=== PATIENT | female | born 1930 | race Caucasian/White ===

== ENCOUNTER 2018-02-21 15:00 | Inpatient (IN) | payer MEDICARE, OTHER ==
[~2018-02-21] VITALS: Ht 154.9 cm; Wt 52.8 kg
[2018-02-21 15:02] VITALS: BP 131/63
[2018-02-21] MEDS ORDERED: ASPIR 8181 MG PO (15:24)
[2018-02-21] MEDS ORDERED: LIPITOR80 MG PO (15:25)
[2018-02-21 15:26] LABS: ABSOLUTE BASOPHILS 0.1 thou/uL (0.0-0.2); ABSOLUTE EOSINOPHILS 0.2 thou/uL (0.0-0.7); ABSOLUTE LYMPHOCYTES 1.4 thou/uL (0.8-5.3); ABSOLUTE MONOCYTES 0.8 thou/uL (0.0-1.2); ABSOLUTE NEUTROPHILS 3.6 thou/uL (1.6-8.1); EOSINOPHILS 2.6 %; HEMOGLOBIN 12.1 gm/dL (12.0-15.0); LYMPHOCYTES 23.6 %; MCHC 33.5 g/dL (28.0-37.0); MCV 83.6 fL (80.0-100.0); MONOCYTES 13.3 %; MPV 10.3 fl. (7.2-11.1); NUCLEATED RBCS 0 /100WBC; PLATELET COUNT* 147 thou/uL (150-400); POLYS 59.5 %; RBC 4.31 mil/uL (4.20-5.00); RDW-CV 14.5 % (10.5-14.5); WBC 6.1 thou/uL (4.0-11.0)
[2018-02-21] MEDS ORDERED: IMDUR 30 MG TAB30 M1 PO (15:26)
[2018-02-21 15:35] LABS: CREATININE 0.8 mg/dL (0.6-1.3); POTASSIUM 3.9 mmol/L (3.5-5.1)
[2018-02-21] MEDS ORDERED: SYNTHROID75 MCG PO (15:36)
[2018-02-21] MEDS ORDERED: LISINOPRIL10 MG PO (15:36)
[2018-02-21] MEDS ORDERED: NAMENDA 10 MG T10 MG PO (15:37)
[2018-02-21] MEDS ORDERED: ATIVAN0.5 MG PO (15:37)
[2018-02-21] MEDS ORDERED: TOPROL XL25 MG PO (15:37)
[2018-02-21] MEDS ORDERED: REMERON15 MG PO (15:38)
[2018-02-21] MEDS ORDERED: ZOLOFT25 MG PO (15:38)
[2018-02-21 15:40] LABS: APTT 25.2 Seconds (25.0-31.3); PROTIME 10.1 Seconds (9.20-11.50)
[2018-02-21 15:53] LABS: ALBUMIN 3.2 g/dL (3.4-5.0); CK-MB MASS 1.2 ng/mL (<0.5-3.6); MAGNESIUM 2.1 mg/dL (1.8-2.4); TOTAL BILIRUBIN 0.3 mg/dL (<0.1-1.0); TOTAL PROTEIN 6.7 g/dL (6.4-8.2); TROPONIN-I LEVEL 0.08 ng/mL (<0.06)
[2018-02-21 17:45] VITALS: BP 179/83
[2018-02-21 17:55] VITALS: BP 171/66
[2018-02-21 20:00] VITALS: BP 171/66
[2018-02-22] VITALS: BP 85/38
[2018-02-22 08:00] VITALS: BP 176/73
--- NOTE | 2018-02-22 09:38 | EKG ---
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
[2018-02-22 11:57] VITALS: BP 143/55
--- NOTE | 2018-02-22 13:28 | 2DMMODE ---
[place] [address] 2 D/M-MODE ECHOCARDIOGRAM Name: JASON HUMPHREY Room: [address] IN [facility]#: [id number] Admission: 02/21/18 Attend Phys: Sintia Lubin Discharge: Date of : [birth year] Date of Service: 02/22/18 1328 Report #: [id number] THIS REPORT FOR: //name// APPROVED REPORT Study performed: 02/22/2018 10:27:07 EXAM: Comprehensive 2D, Doppler, and color-flow Echocardiogram Patient Location: In-Patient Room #: [facility] Status: routine BSA: 1.50 HR: 52 bpm BP: 176/73 mmHg Rhythm: NSR Other Information Study Quality: Good Indications Elevated Troponin Chest Pain 2D Dimensions LVEF(%): 68.35 (>50%) IVSd: 11.28 (7-11mm) LVOT Diam: 19.91 (18-24mm) LVDd: 34.03 mm PWd: 8.89 (7-11mm) Ascending Ao: 32.26 (22-36mm) LVDs: 21.36 (25-40mm) Aortic Root: 32.77 mm Ocampo's LVEF: 68.35 % Volumes Left Atrial Volume (Systole) LA ESV Index: 20.20 mL/m2 Aortic Valve AoV Peak Nilson.: 1.09 m/s AO Peak Gr.: 4.73 mmHg LVOT Max P.70 mmHg AO Mean Gr.: 2.32 mmHg LVOT Mean P.15 mmHg LVOT Max V: 0.82 m/s AO V2 VTI: 22.84 cm LVOT Mean V: 0.48 m/s JOSE (VTI): 3.34 cm2 LVOT V1 VTI: 24.52 [place] [address] 2 D/M-MODE ECHOCARDIOGRAM Name: JASON HUMPHREY Room: [address] IN .R.#: [id number] Admission: 02/21/18 Attend Phys: Sintia Lubin Discharge: Date of : [birth year]/09/[birth year] Date of Service: 02/22/18 1328 Report #: [id number] E/A Ratio: 0.77 MV Decel. Time: 323.22 ms MV E Max Nilson.: 0.72 m/s MV PHT: 93.73 ms MVA (PHT): 2.35 cm2 TDI E/Lateral E': 8.00 E/Medial E': 10.29 Medial E' Nilson.: 0.07 m/s Lateral E' Nilson.: 0.09 m/s Pulmonary Valve PV Peak Nilson.: 0.75 m/s PV Peak Gr.: 2.26 mmHg Left Ventricle The left ventricle is normal size. basal inferior hyokinesis,mild other segments normal Mild concentric left ventricular hypertrophy. Left ventricular systolic function is normal. The left ventricular ejection fraction is within the normal range. LVEF is 50-55%. Grade I - abnormal relaxation pattern. Right Ventricle The right ventricle is normal size. The right ventricular systolic function is normal. Atria The left atrium size is normal. The right atrium size is normal. Aortic Valve Aortic valve is thickened but has adequate excursion. Aortic valve is not well visualized. No aortic regurgitation is present. There is no aortic valvular stenosis. Mitral Valve The mitral valve is normal in structure. Trace mitral regurgitation. No evidence of mitral valve stenosis. Tricuspid Valve The tricuspid valve is normal in structure. Unable to assess PA pressure. Trace tricuspid regurgitation. Pulmonic Valve The pulmonary valve is normal in structure. Mild [place] [address] 2 D/M-MODE ECHOCARDIOGRAM Name: JASON HUMPHREY MARK Room: [address] IN [facility]#: [id number] Admission: 02/21/18 Attend Phys: Sintia Lubin Discharge: Date of : 05/09/[birth year] Date of Service: 02/22/18 1328 Report #: [id number] Great Vessels The aortic root is normal in size. IVC is normal in size and collapses with >50% inspiration Pericardium There is no pericardial effusion. <Conclusion> Mild concentric left ventricular hypertrophy. basal inferior hyokinesis,mild other segments normal LVEF is 50-55%. Trace mitral regurgitation. Aortic valve is thickened but has adequate excursion. There is no aortic valvular stenosis. No aortic regurgitation is present. <ELECTRONICALLY SIGNED> By: Benito Ramírez MD, FACC 02/22/18 1328 27 27 Benito Ramírez MD, FACC /INF
[2018-02-22 15:24] VITALS: BP 122/68
[2018-02-22 20:00] VITALS: BP 86/48
[2018-02-23] VITALS: BP 141/69
[2018-02-23 03:54] VITALS: BP 111/63
[2018-02-23 08:00] VITALS: BP 159/87
[2018-02-23] MEDS ORDERED: FOSINOPRIL SODI20 MG PO (12:01)
[2018-02-23] MEDS ORDERED: IMDUR 60 MG TAB60 M1 PO (12:01)
[2018-02-23 12:11] VITALS: BP 123/57
[2018-02-23 12:48] VITALS: BP 123/57
[2018-02-23 13:22] VITALS: BP 123/57
== END 2018-02-23 13:47 | disposition home or self-care (01) | DRG 303 ==
LOC: M.ERS 15:00 → M.TBA-ER 16:48 → M.2W 16:48
PROVIDERS: Emergency Medicine; ADMIT Internal Medicine
DX: I25.119 Atherosclerotic heart disease of native coronary artery with unspecified angina pectoris (principal); F03.90 Unspecified dementia, unspecified severity, without behavioral disturbance, psychotic disturbance, mood disturbance, and anxiety; I10 Essential (primary) hypertension; E78.5 Hyperlipidemia, unspecified; Z88.6 Allergy status to analgesic agent; Z88.0 Allergy status to penicillin; Z95.5 Presence of coronary angioplasty implant and graft; Z79.82 Long term (current) use of aspirin; Z79.899 Other long term (current) drug therapy; I25.2 Old myocardial infarction

== ENCOUNTER → 2018-09-06 | Outpatient (CLI) | payer MEDICARE, OTHER ==
[~2018-09-06] MED LIST: ASPIR 8181 MG PO; ATIVAN0.5 MG PO; FOSINOPRIL SODI20 MG PO; IMDUR 30 MG TAB30 M1 PO; IMDUR 60 MG TAB60 M1 PO; LIPITOR80 MG PO; LISINOPRIL10 MG PO; NAMENDA 10 MG T10 MG PO; REMERON15 MG PO; SYNTHROID75 MCG PO; TOPROL XL25 MG PO; ZOLOFT25 MG PO
--- NOTE | 2018-09-06 16:10 | 2DMMODE ---
[place] [address] 2 D/M-MODE ECHOCARDIOGRAM Name: JASON HMUPHREY MARK Room: [facility]#: [id number] Admission: 09/06/18 Attend Phys: Ramos Bell Discharge: Date of : [birth year]/09/[birth year] Date of Service: 09/06/18 1610 Report #: [id number] THIS REPORT FOR: //name// APPROVED REPORT Study performed: 09/06/2018 11:15:08 EXAM: Comprehensive 2D, Doppler, and color-flow Echocardiogram Patient Location: Out-Patient Status: routine BSA: 1.51 HR: 85 bpm BP: 172/73 mmHg Rhythm: NSR Other Information Study Quality: Good Indications CAD Hypertension/HDD 2D Dimensions IVSd: 11.63 (7-11mm) LVOT Diam: 21.94 (18-24mm) LVDd: 32.41 mm PWd: 9.96 (7-11mm) Ascending Ao: 34.88 (22-36mm) LVDs: 16.81 (25-40mm) Aortic Root: 29.68 mm Volumes Left Atrial Volume (Systole) LA ESV Index: 29.60 mL/m2 Aortic Valve AoV Peak Nilson.: 1.04 m/s AO Peak Gr.: 4.34 mmHg LVOT Max P.24 mmHg AO Mean Gr.: 2.60 mmHg LVOT Mean P.51 mmHg LVOT Max V: 0.90 m/s AO V2 VTI: 20.20 cm LVOT Mean V: 0.56 m/s JOSE (VTI): 3.43 cm2 LVOT V1 VTI: 18.30 cm Mitral Valve E/A Ratio: 0.49 MV Decel. Time: 282.31 [place] [address] 2 D/M-MODE ECHOCARDIOGRAM Name: JASON HUMPHREY [facility] Room: [facility] Gian#: [id number] Admission: 09/06/18 Attend Phys: Ramos Bell Discharge: Date of : 05/09/[birth year] Date of Service: 09/06/18 1610 Report #: [id number] MV E Max Nilson.: 0.59 m/s MV PHT: 81.87 ms MVA (PHT): 2.69 cm2 TDI E/Lateral E': 6.56 E/Medial E': 6.56 Medial E' Nilson.: 0.09 m/s Lateral E' Nilson.: 0.09 m/s Pulmonary Valve PV Peak Nilson.: 0.90 m/s PV Peak Gr.: 3.21 mmHg Tricuspid Valve RAP Estimate: 5.00 mmHg TR Peak Gr.: 15.45 mmHg RVSP: 20.00 mmHg PA Pressure: 20.00 mmHg Left Ventricle The left ventricle is normal size. There is normal LV segmental wall motion. Mild concentric left ventricular hypertrophy. Left ventricular systolic function is normal. The left ventricular ejection fraction is within the normal range. LVEF is 60-65%. Grade I - abnormal relaxation pattern. Right Ventricle The right ventricle is normal size. The right ventricular systolic function is normal. Atria The left atrium size is normal. The right atrium size is normal. Aortic Valve Mild aortic valve sclerosis. No aortic regurgitation is present. There is no aortic valvular stenosis. Mitral Valve Mild mitral annular calcification. Trace mitral regurgitation. No evidence of mitral valve stenosis. Tricuspid Valve The tricuspid valve is normal in structure. Trace tricuspid regurgitation. No pulmonary hypertension. Pulmonic Valve The pulmonary valve is normal in structure[place] [address] 2 D/M-MODE ECHOCARDIOGRAM Name: JASON HUMPHREY MARK [id number] Admission: 09/06/18 Attend Phys: Ramos Bell Discharge: Date of : [birth year]/09/[birth year] Date of Service: 09/06/18 1610 Report #: [id number] regurgitation. Great Vessels The aortic root is normal in size. IVC is normal in size and collapses >50% with inspiration. Pericardium There is no pericardial effusion. <Conclusion> The left ventricle is normal size. Mild concentric left ventricular hypertrophy. Left ventricular systolic function is normal. The left ventricular ejection fraction is within the normal range. LVEF is 60-65%. Grade I - abnormal relaxation pattern. The right ventricle is normal size. The left atrium size is normal. Mild aortic valve sclerosis. No aortic regurgitation is present. There is no aortic valvular stenosis. Mild mitral annular calcification. Trace mitral regurgitation. No evidence of mitral valve stenosis. The tricuspid valve is normal in structure. IVC is normal in size and collapses >50% with inspiration. There is no pericardial effusion. There is normal LV segmental wall motion. <ELECTRONICALLY SIGNED> By: Tomy Harper MD, FACC 09/06/18 1610 161 161 Tomy Harper MD, FACC /INF
== END ==
LOC: M.CRD 10:58
DX: I37.1 Nonrheumatic pulmonary valve insufficiency (principal); I35.8 Other nonrheumatic aortic valve disorders; I34.8 Other nonrheumatic mitral valve disorders; I11.9 Hypertensive heart disease without heart failure; I25.10 Atherosclerotic heart disease of native coronary artery without angina pectoris; I25.2 Old myocardial infarction

== ENCOUNTER 2018-12-19 05:59 | Inpatient (IN) | payer MEDICARE, OTHER ==
[~2018-12-19] VITALS: Ht 157.5 cm; Wt 60.3 kg
[2018-12-19 06:00] VITALS: BP 194/75
[2018-12-19] MEDS ORDERED: SEROQUEL 25 MG25 M1 PO (06:02)
[2018-12-19 06:21] LABS: ABSOLUTE BASOPHILS 0.1 thou/uL (0.0-0.2); ABSOLUTE EOSINOPHILS 0.3 thou/uL (0.0-0.7); ABSOLUTE LYMPHOCYTES 1.2 thou/uL (0.8-5.3); ABSOLUTE MONOCYTES 0.6 thou/uL (0.0-1.2); ABSOLUTE NEUTROPHILS 3.4 thou/uL (1.6-8.1); BASOPHILS 1.4 %; EOSINOPHILS 4.8 %; HEMATOCRIT 36.1 % (37.0-47.0); LYMPHOCYTES 21.6 %; MCH 27.8 pg (26.0-34.0); MCHC 33.2 g/dL (28.0-37.0); MCV 83.7 fL (80.0-100.0); MPV 9.9 fl. (7.2-11.1); NUCLEATED RBCS 0 /100WBC; PLATELET COUNT* 123 thou/uL (150-400); POLYS 61.2 %; RBC 4.32 mil/uL (4.20-5.00); RDW-CV 15.5 % (10.5-14.5); WBC 5.6 thou/uL (4.0-11.0)
[2018-12-19 06:26] LABS: CALCIUM 8.6 mg/dL (8.5-10.1); CREATININE 1.1 mg/dL (0.6-1.3); POTASSIUM 3.9 mmol/L (3.5-5.1)
[2018-12-19 06:36] LABS: TROPONIN-I LEVEL 0.07 ng/mL (<0.06)
[2018-12-19 06:50] LABS: URINE BILIRUBIN NEGATIVE (Negative); URINE BLOOD NEGATIVE (Negative); URINE CLARITY CLEAR; URINE COLOR YELLOW; URINE GLUCOSE-RANDOM NEGATIVE (Negative); URINE KETONES NEGATIVE (Negative); URINE LEUKOCYTES-REFLEX NEGATIVE (Negative); URINE NITRITE-REFLEX NEGATIVE (Negative); URINE PROTEIN NEGATIVE (Negative); URINE SPECIFIC GRAVITY <= 1.005 (1.005-1.030); URINE UROBILINOGEN 0.2 E.U./dl (0.2-1.0)
[2018-12-19 07:55] LABS: APTT 25.5 Seconds (25.0-31.3); PROTIME 10.3 Seconds (9.20-11.50)
[2018-12-19 12:30] VITALS: BP 101/51
[2018-12-19 16:29] VITALS: BP 136/69
--- NOTE | 2018-12-19 16:33 | NUR ---
ASSESSMENT COMPLETE. PT ADMITTED WITH HIP FX. PT NEEDS CARDIOLOGY CLEARANCE FOR SURGERY TOMORROW. PT ALERT, ORIENTED TO SELF HX OF DEMENTIA. PT LIVES WITH SPOUSE AT [facility] [place]. PT IS CONFUSED AND PULLING AT IV, TIDWELL, TELEMETRY MONITORS. PT CLIMBING OUT OF BED, PRN ATIVAN GIVEN. FAMILY AT BEDSIDE. WILL CONTINUE TO MONITOR.
--- NOTE | 2018-12-19 16:53 | EKG ---
[place] [address] ELECTROCARDIOGRAM REPORT Name: JASON HUMPHREY Room: [address] ADM IN [facility].#: [id number] Admission: 12/19/18 Attend Phys: Austen Winston MD Discharge: Date of : [birth year]/09/[birth year] Report #: [id number] THIS REPORT FOR: //name// 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
--- NOTE | 2018-12-19 17:11 | NUR ---
PT PULLED OUT TIDWELL AT 1705, WILL NOTIFY PHYSICIAN FOR ORDERS. PT GIVEN PAIN MEDICATION AND SEROQUEL PER ORDERS. SITTER AT BEDSIDE. WILL CONTINUE TO MONITOR.
[2018-12-19 19:30] VITALS: BP 98/58
[2018-12-20] VITALS (9 sets, daily range): BP systolic 104–191; BP diastolic 44–80
--- NOTE | 2018-12-20 00:10 | NUR ---
INITAL ASSESMENT COMPLETED AT 1999. PT IN BED WITH SIDE RAILS UP X4. ONE TO ONE SITTER AT BEDSIDE FOR PT SAFETY AND TO MAINTAIN SALINE LOCK AND TELEMERTY MONITOR IN PLACE. VITAL SIGNS WITHIN NORMAL LIMITS.
[2018-12-20 05:25] LABS: ABSOLUTE EOSINOPHILS 0.3 thou/uL (0.0-0.7); ABSOLUTE LYMPHOCYTES 0.9 thou/uL (0.8-5.3); ABSOLUTE MONOCYTES 0.8 thou/uL (0.0-1.2); BASOPHILS 0.7 %; EOSINOPHILS 4.3 %; HEMATOCRIT 32.2 % (37.0-47.0); HEMOGLOBIN 10.6 gm/dL (12.0-15.0); LYMPHOCYTES 15.4 %; MCH 27.8 pg (26.0-34.0); MCV 84.3 fL (80.0-100.0); MONOCYTES 13.1 %; MPV 10.5 fl. (7.2-11.1); NUCLEATED RBCS 0 /100WBC; PLATELET COUNT* 108 thou/uL (150-400); POLYS 66.5 %; RBC 3.82 mil/uL (4.20-5.00); RDW-CV 15.4 % (10.5-14.5)
[2018-12-20 05:53] LABS: ANION GAP 7 mmol/L (7-16); BUN 14 mg/dL (7-18); CALCIUM 8.4 mg/dL (8.5-10.1); CHLORIDE 108 mmol/L (98-107); CHOLESTEROL 85 mg/dL (<200); CO2 28 mmol/L (21-32); GLUCOSE 114 mg/dL (70-99); HDL CHOLESTEROL 46 mg/dL (>40); LDL CHOLESTEROL 27 mg/dL (<100); MAGNESIUM 1.9 mg/dL (1.8-2.4); POTASSIUM 4.1 mmol/L (3.5-5.1); SODIUM 143 mmol/L (136-145); TC:HDL 1.8 Ratio (Not establshd); TRIGLYCERIDE 62 mg/dL (<150); VLDL 12 mg/dL (<40)
[2018-12-20 06:00] LABS: SERUM ASSESSMENT Clear
--- NOTE | 2018-12-20 06:38 | NUR ---
PT SLEPT DURING SHIFT. PT NPO AFTER MIDNIGHT FOR ORIF OF LEFT HIP. PT GIVEN AM MEDS AT 0530 WITH SMALL AMOUNT OF WATER. VITAL SIGNS WITHIN NORMAL LIMITS, WILL CONTINUE PLAN OF CARE.
--- NOTE | 2018-12-20 11:36 | NUR ---
Pt in surgery this morning. From previous record, pt living in [facility]. Pt alert and oriented only to self according to pt nurse. SW to continue to follow to assist with safe dc planning.
--- NOTE | 2018-12-20 11:39 | EKG ---
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: : 1930 Requested By: Mariana Pittman Order Number: [id number] Reading MD: Benito Ramírez Measurements Intervals [place] Rate: 67 P: 22 [place]: 159 QRS: -39 QRSD: 87 T: 10 QT: 441 QTc: 466 Interpretive Statements Sinus rhythm Abnormal R-wave progression, late transition Left ventricular hypertrophy Inferior infarct, old Compared to ECG 12/19/2018 06:08:39 Left ventricular hypertrophy now present Myocardial infarct finding still present Electronically Signed On 12-20-2018 11:38:48 CDT by Benito Ramírez [email or web address] <ELECTRONICALLY SIGNED> By: Benito Ramírez MD, FAC 12/20/18 1138 0930 0930 Benito Ramírez MD, FAC /EPI
--- NOTE | 2018-12-20 13:44 | CON ---
[address] [address] CONSULTATION Name: JASON HUMPHREY Room: [address] IN M.R.#: [id number] Admission: 12/19/18 Attend Phys: Austen Winston MD Discharge: Date of : [birth year]09/[birth year] Report #: [id number] THIS REPORT FOR: //name// CC: [facility] Hospital[facility] DATE OF SERVICE: 12/19/2018 CARDIOLOGY CONSULTATION HISTORY OF PRESENT ILLNESS: The patient is an 88-year-old white female who I was asked to see in the hospital today for preoperative evaluation. The history is obtained from the patient as well as some old records. There are no family members available. The patient is confused. She was actually admitted here in 02/2018 and seen by the Cardiology Service. The patient apparently has a history of dementia and had complained of some chest pain. She apparently has had a history of coronary artery stenting at [facility] in the past. The patient is not very active because of her dementia. The patient apparently was brought to the Emergency Room earlier today. She apparently had fallen at the long-term, but there is no loss of consciousness. She complained of hip pain and was found to have a hip fracture. She apparently scheduled for hip surgery. I was asked to see her for preoperative evaluation. She denies recent chest pain, shortness of breath. PAST MEDICAL HISTORY: Otherwise significant for hypothyroidism. MEDICATIONS AT ALF: Include aspirin, Synthroid, metoprolol, Lipitor, sertraline, Seroquel. ALLERGIES: She has intolerance to MORPHINE AND PENICILLIN. SOCIAL HISTORY: She denies a history of smoking. REVIEW OF SYSTEMS: There is no history of stroke, kidney disease or cancer. PHYSICAL EXAMINATION: GENERAL: Revealed an elderly frail appearing female, lying in bed. She appeared in no acute distress. VITAL SIGNS: She had a blood pressure of 140/70, pulse 60. She is afebrile. HEENT: She was anicteric. Conjunctivae are pink. Mucous membranes are dry. NECK: Veins do not appear distended. CHEST: Clear to auscultation. CARDIOVASCULAR: Regular rate and rhythm. ABDOMEN: Soft. EXTREMITIES: Had no edema. SKIN: [place] [address] CONSULTATION Name: JASON HUMPHREY [facility] Room: [address] IN [facility]#: [id number] Admission: 12/19/18 Attend Phys: Austen Winston MD Discharge: Date of : [birth year]/09/[birth year] Report #: [id number] NEUROLOGIC: She moved all extremities. LABORATORY DATA: ECG on admission showed sinus rhythm with septal Q-waves, but no significant ST or T-wave changes were noted. Her workup, she had an echocardiogram done in September of this year here at [facility] that showed left ventricular hypertrophy, ejection fraction 60%, no significant valvular disease. Workup in the Emergency Room today, she had a CT scan of the head that showed no acute abnormality. Her lab work, sodium 145, creatinine 1.1, albumin 3.2. Troponin 0.09. White blood cell count 5.6, hemoglobin 12.0. IMPRESSION AND RECOMMENDATIONS: 1. Hip fracture. The patient is scheduled for surgery. She appears to have no cardiac contraindication to surgery. 2. History of coronary artery stenting. No complaints of recent angina. Recommend no further cardiac evaluation. 3. Hyperlipidemia. The patient is on a statin drug. 4. Hypertension. The patient is on an SANJAY inhibitor and beta karen. 5. Dementia. <ELECTRONICALLY SIGNED> By: Jesus Escudero MD, FACC 12/20/18 1344 1738 [id number] Escudero MD, FACC /nt
--- NOTE | 2018-12-20 14:25 | OP ---
[address] [address] OPERATIVE REPORT Name: KMAJASON MARK Room: [address] IN M.R.#: [id number] Admission: 12/19/18 Attend Phys: Austen Winston MD Discharge: Date of : [birth year]09/[birth year] Report #: [id number] THIS REPORT FOR: //name// CC: Austen Jacques DATE OF SERVICE: 12/20/2018 PREOPERATIVE DIAGNOSIS: Closed intertrochanteric fracture, left hip. POSTOPERATIVE DIAGNOSIS: Closed intertrochanteric fracture, left hip. OPERATION PERFORMED: 1. Open reduction and internal fixation with cephalomedullary lillian, left hip. 2. Physician directed fluoroscopy by Dr. Adams under 1 hour. SURGEON: Jovanny Adams DO. MUSIC COORDINATOR: Jeffy Carrasco. ANESTHESIA: General. GROSS PATHOLOGY: There was evidence of a closed intertrochanteric fracture of the left hip. IMPLANTS UTILIZED: [place] gamma lillian standard with 90-mm lag screw, 37.5-mm distal locking screw and set screw. DESCRIPTION OF PROCEDURE: The patient was brought to the operating room where general anesthetic was administered. Preoperative antibiotics were given. The patient was placed on the operating table. The left hip was placed in traction. The fracture was reduced, noted to be in acceptable position. After the Hibiclens scrub and ChloraPrep, prep was completed, the patient was draped in a sterile manner. An incision was then made at the greater trochanter, approximately an inch and half in length, it was carried down through the skin and subcuticular material by sharp dissection. By sharp and blunt dissection, the tip of the greater trochanter is identified. The starting awl was utilized to make a hole in the greater trochanter. The guidewire was inserted into the femoral shaft. It was viewed with the C-arm, noted to be in the center of the bone. The femur was then reamed up to 13 mm to the area where the lillian will end and then reamed to 15.5 mm to the depth of the lesser trochanter. The gamma lillian is assembled. It is inserted over the guidewire to the appropriate depth. The guidewire was removed. Utilizing the guide, a guidewire was inserted into the femoral neck and head. Measurements were taken. The dual reamer was used to ream over the guidewire. The lag screw was placed [place] [address] OPERATIVE REPORT Name: JASON HUMPHREY Room: [address] IN [facility]#: [id number] Admission: 12/19/18 Attend Phys: Austen Winston MD Discharge: Date of : [birth year]09/[birth year] Report #: [id number] appropriate depth. The proximal locking screw was then tightened into the lag screw and backed off a quarter turn. Attention was turned to the distal portion of the lillian. Utilizing the guide, a drill was used to drill across the distal portion of the lillian. Measurements were taken. The distal locking screws placed through the bone and the implant device. All inserting devices are removed. The final C-arm visualization revealed acceptable position of the fracture site and implant devices. The C-arm was used intermittently under my direction under one hour. The deep tissues were closed Vicryl suture, subcutaneous with 2-0 Vicryl and magdalene on the skin. Estimated blood loss was approximately 100 mL. The patient was transferred to the recovery room in good condition. <ELECTRONICALLY SIGNED> By: Jovanny Adams DO 12/20/18 1425 1136 [id number] Adams DO /nt
[2018-12-21] VITALS: BP 132/64
[2018-12-21 04:00] VITALS: BP 135/75
[2018-12-21 05:18] LABS: ABSOLUTE LYMPHOCYTES 0.4 thou/uL (0.8-5.3); ABSOLUTE MONOCYTES 0.8 thou/uL (0.0-1.2); ABSOLUTE NEUTROPHILS 6.5 thou/uL (1.6-8.1); BASOPHILS 0.1 %; HEMATOCRIT 31.4 % (37.0-47.0); HEMOGLOBIN 10.5 gm/dL (12.0-15.0); LYMPHOCYTES 5.6 %; MCH 28.2 pg (26.0-34.0); MCHC 33.2 g/dL (28.0-37.0); MCV 84.7 fL (80.0-100.0); MONOCYTES 10.2 %; MPV 10.7 fl. (7.2-11.1); NUCLEATED RBCS 0 /100WBC; PLATELET COUNT* 110 thou/uL (150-400); POLYS 84.1 %; RBC 3.71 mil/uL (4.20-5.00); RDW-CV 15.4 % (10.5-14.5); WBC 7.8 thou/uL (4.0-11.0)
[2018-12-21 05:21] LABS: CALCIUM 8.2 mg/dL (8.5-10.1); CREATININE 0.9 mg/dL (0.6-1.3); POTASSIUM 4.9 mmol/L (3.5-5.1)
[2018-12-21 07:30] VITALS: BP 129/59
[2018-12-21 12:01] VITALS: BP 112/53
[2018-12-21 19:40] VITALS: BP 162/78
[2018-12-22] VITALS: BP 141/46
[2018-12-22 04:35] LABS: ABSOLUTE EOSINOPHILS 0.3 thou/uL (0.0-0.7); ABSOLUTE LYMPHOCYTES 0.8 thou/uL (0.8-5.3); ABSOLUTE MONOCYTES 0.9 thou/uL (0.0-1.2); ABSOLUTE NEUTROPHILS 4.8 thou/uL (1.6-8.1); BASOPHILS 0.5 %; EOSINOPHILS 4.2 %; HEMATOCRIT 25.7 % (37.0-47.0); LYMPHOCYTES 12.1 %; MCH 27.6 pg (26.0-34.0); MCHC 32.8 g/dL (28.0-37.0); MCV 84.1 fL (80.0-100.0); MONOCYTES 12.6 %; MPV 10.9 fl. (7.2-11.1); NUCLEATED RBCS 0 /100WBC; PLATELET COUNT* 102 thou/uL (150-400); POLYS 70.6 %; RBC 3.06 mil/uL (4.20-5.00); RDW-CV 15.3 % (10.5-14.5); WBC 6.8 thou/uL (4.0-11.0)
[2018-12-22 04:50] LABS: CALCIUM 8.3 mg/dL (8.5-10.1); HEMOGLOBIN 8.4 gm/dL (12.0-15.0)
[2018-12-22 05:09] LABS: POTASSIUM 3.9 mmol/L (3.5-5.1)
--- NOTE | 2018-12-22 05:21 | NUR ---
PT SLEPT ON AND OFF THIS SHIFT. ASSESSMENT DOCUMENTED. MEDS GIVEN PER E-MAR. PT PULLED OUT IV THIS SHIFT, NEW IV STARTED. O2 REMAINED ON PATIENT TO MAINTAIN SATS OVER 92%. PAIN MEDS GIVEN PER E-MAR WITH RELIEF. PT ONLY ORIENTED TO SELF. PT TRYING TO CLIMB OUT OF BED, NOT REMEMBERING WHERE SHE IS OR WHY. SITTER REMAINED AT BEDSIDE. WILL CONTINUE WITH PLAN OF CARE.
[2018-12-22 11:54] VITALS: BP 127/62
--- NOTE | 2018-12-22 12:22 | NUR ---
SW called pt son Edison to introduce self, complete assessment, discuss dc planning. SW informed doctor's recommendation for inpt rehab and pt son agrees with plan for inpt rehab at [facility], pt son was concerned and does not want pt to have to move out to SNF or other and then move again back to [facility] at dc. Pt does still live at [facility] with pt . Pt has a RW now but pt does not use the walker. Possible for pt to be ready to dc to inpt rehab unit tomorrow if accepted. SW to continue to follow to assist with finalizing safe dc plan.
--- NOTE | 2018-12-22 16:10 | NUR ---
YUNG RESTING IN BED. VITAL SIGNS STABLE. YUNG IS AOX1 AND CONFUSED. SHE IS AMBULATING WITH WALKER AND ASSIST X1. HOURLY ROUNDING COMPLETED FOR PATIWENT SAFETY.
[2018-12-22 20:00] VITALS: BP 188/84
--- NOTE | 2018-12-22 20:00 | NUR ---
RECEIVED REPORT AND ASSUMED CARE OF PT, ASSESSMENT COMPLETED. PT CONFUSED, ORIENTED TO PERSON ONLY. UPSET BECAUSE HASN'T BEEN HERE ALL DAY. REASSURANCE GIVEN AND REINFORCED THAT HE HAD. LT HIP DRSG DRY AND INTACT. SITTER AT BED SIDE. WILL CONT TO MONITOR AND ASSIST NEEDED.
[2018-12-23] VITALS: BP 135/56
[2018-12-23 05:13] LABS: ABSOLUTE BASOPHILS 0.1 thou/uL (0.0-0.2); ABSOLUTE EOSINOPHILS 0.3 thou/uL (0.0-0.7); ABSOLUTE LYMPHOCYTES 0.9 thou/uL (0.8-5.3); ABSOLUTE MONOCYTES 0.7 thou/uL (0.0-1.2); ABSOLUTE NEUTROPHILS 3.5 thou/uL (1.6-8.1); BASOPHILS 1.3 %; EOSINOPHILS 5.5 %; HEMATOCRIT 25.5 % (37.0-47.0); HEMOGLOBIN 8.4 gm/dL (12.0-15.0); LYMPHOCYTES 17.1 %; MCH 27.5 pg (26.0-34.0); MCV 83.4 fL (80.0-100.0); MONOCYTES 12.7 %; MPV 10.6 fl. (7.2-11.1); NUCLEATED RBCS 0 /100WBC; PLATELET COUNT* 110 thou/uL (150-400); POLYS 63.4 %; RBC 3.05 mil/uL (4.20-5.00); RDW-CV 15.5 % (10.5-14.5); WBC 5.5 thou/uL (4.0-11.0)
[2018-12-23 05:25] LABS: CALCIUM 8.2 mg/dL (8.5-10.1); CREATININE 0.8 mg/dL (0.6-1.3); POTASSIUM 3.6 mmol/L (3.5-5.1)
--- NOTE | 2018-12-23 06:56 | NUR ---
SLEPT WELL TONIGHT. ASSISTED TO BR WITH WALKER AND STEADY GAIT. NO CHANGE IN ASSESSMENT. HS GOALS OF REST AND SAFETY ACHIEVED. HOURLY ROUNDING OBSERVED.
[2018-12-23] MEDS ORDERED: HYDROCODON-ACE1 EAC7 PO (14:42)
[2018-12-23] MEDS ORDERED: THERA M PLUS T1 EAC2 PO (14:42)
[2018-12-23] MEDS ORDERED: B12INJ SUBQ (14:42)
[2018-12-23] MEDS ORDERED: PANTOPRAZOLE SO40 M1 PO (14:42)
[2018-12-23] MEDS ORDERED: ELIQUIS5 MG PO (14:42)
[2018-12-23] MEDS ORDERED: DOK PLUS TABLE1 EACH PO (14:42)
[2018-12-23 15:54] VITALS: BP 138/82
[2018-12-23 16:55] VITALS: BP 138/82
== END 2018-12-23 18:18 | DRG 480 ==
LOC: M.ERS 05:59 → M.2W 07:53 → M.TBA-ER 07:53 → M.2W 15:57
PROVIDERS: Emergency Medicine; Family Medicine; Personal Emergency Response Attendant; ADMIT Internal Medicine
PROC: 0QS704Z Reposition Left Upper Femur with Internal Fixation Device, Open Approach (ICD-10-PCS; principal; 2018-12-20)
DX: S72.115A Nondisplaced fracture of greater trochanter of left femur, initial encounter for closed fracture (principal); I21.A1 Myocardial infarction type 2; D62 Acute posthemorrhagic anemia; F03.90 Unspecified dementia, unspecified severity, without behavioral disturbance, psychotic disturbance, mood disturbance, and anxiety; I10 Essential (primary) hypertension; E03.9 Hypothyroidism, unspecified; E78.5 Hyperlipidemia, unspecified; E53.8 Deficiency of other specified B group vitamins; E61.1 Iron deficiency; I25.10 Atherosclerotic heart disease of native coronary artery without angina pectoris; Z79.82 Long term (current) use of aspirin; Z79.899 Other long term (current) drug therapy; Z95.5 Presence of coronary angioplasty implant and graft; Z88.6 Allergy status to analgesic agent; Z88.0 Allergy status to penicillin; W18.39XA Other fall on same level, initial encounter; Y93.89 Activity, other specified; Y92.89 Other specified places as the place of occurrence of the external cause; Y99.8 Other external cause status

== ENCOUNTER 2018-12-23 17:17 | Inpatient (IN) | payer MEDICARE, OTHER ==
[~2018-12-23] VITALS: Ht 157.5 cm; Wt 54.9 kg
[~2018-12-23 17:17] MED LIST changes: +B12INJ SUBQ; +DOK PLUS TABLE1 EACH PO; +ELIQUIS5 MG PO; +HYDROCODON-ACE1 EAC7 PO; +PANTOPRAZOLE SO40 M1 PO; +SEROQUEL 25 MG25 M1 PO; +THERA M PLUS T1 EAC2 PO
[2018-12-23 18:58] VITALS: BP 184/75
[2018-12-23 21:30] VITALS: BP 177/78
[2018-12-24 05:04] LABS: HEMATOCRIT 27.9 % (37.0-47.0); HEMOGLOBIN 9.4 gm/dL (12.0-15.0); MCH 28.2 pg (26.0-34.0); MCHC 33.9 g/dL (28.0-37.0); MCV 83.3 fL (80.0-100.0); MPV 10.5 fl. (7.2-11.1); RBC 3.35 mil/uL (4.20-5.00); RDW-CV 15.5 % (10.5-14.5); WBC 7.6 thou/uL (4.0-11.0)
[2018-12-24 05:32] LABS: CALCIUM 8.7 mg/dL (8.5-10.1); CREATININE 0.7 mg/dL (0.6-1.3); POTASSIUM 3.3 mmol/L (3.5-5.1)
[2018-12-24 08:04] VITALS: BP 205/83
[2018-12-24 08:06] VITALS: BP 196/88
[2018-12-24 09:30] VITALS: BP 156/77
[2018-12-24 19:58] VITALS: BP 169/70
[2018-12-25 08:24] VITALS: BP 195/78
[2018-12-25 20:00] VITALS: BP 156/62
[2018-12-26 04:11] LABS: HEMATOCRIT 28.5 % (37.0-47.0); HEMOGLOBIN 9.7 gm/dL (12.0-15.0); MCH 28.5 pg (26.0-34.0); MPV 10.1 fl. (7.2-11.1); NUCLEATED RBCS 0 /100WBC; PLATELET COUNT* 163 thou/uL (150-400); RBC 3.39 mil/uL (4.20-5.00); RDW-CV 15.6 % (10.5-14.5); WBC 6.7 thou/uL (4.0-11.0)
[2018-12-26 04:22] LABS: CALCIUM 8.4 mg/dL (8.5-10.1); CREATININE 0.9 mg/dL (0.6-1.3); MAGNESIUM 2.2 mg/dL (1.8-2.4); POTASSIUM 3.8 mmol/L (3.5-5.1)
[2018-12-26 05:26] LABS: ABSOLUTE BASOPHILS 0.1 thou/uL (0.0-0.2); ABSOLUTE EOSINOPHILS 0.3 thou/uL (0.0-0.7); ABSOLUTE LYMPHOCYTES 2.2 thou/uL (0.8-5.3); ABSOLUTE MONOCYTES 0.3 thou/uL (0.0-1.2); ABSOLUTE NEUTROPHILS 3.9 thou/uL (1.6-8.1)
[2018-12-26 05:27] LABS: ANISOCYTOSIS 1+; PLATELET ESTIMATE ADEQUATE; POIKILOCYTOSIS 1+
[2018-12-26 05:28] LABS: OVALOCYTES 1+
[2018-12-26 09:08] VITALS: BP 112/56
[2018-12-26 20:00] VITALS: BP 126/63
[2018-12-27 08:00] VITALS: BP 132/54
[2018-12-27 19:47] VITALS: BP 90/51
[2018-12-28 04:16] LABS: HEMATOCRIT 29.4 % (37.0-47.0); HEMOGLOBIN 9.9 gm/dL (12.0-15.0); MCH 28.5 pg (26.0-34.0); MCHC 33.6 g/dL (28.0-37.0); MCV 84.8 fL (80.0-100.0); MPV 9.9 fl. (7.2-11.1); RBC 3.47 mil/uL (4.20-5.00); RDW-CV 16.2 % (10.5-14.5); WBC 7.7 thou/uL (4.0-11.0)
[2018-12-28 04:26] LABS: CALCIUM 8.2 mg/dL (8.5-10.1); CREATININE 1.1 mg/dL (0.6-1.3); POTASSIUM 3.9 mmol/L (3.5-5.1)
[2018-12-28 06:46] LABS: URINE BILIRUBIN NEGATIVE (Negative); URINE BLOOD NEGATIVE (Negative); URINE CLARITY CLEAR; URINE COLOR DARK YELLOW; URINE GLUCOSE-RANDOM NEGATIVE (Negative); URINE KETONES NEGATIVE (Negative); URINE LEUKOCYTES-REFLEX NEGATIVE (Negative); URINE NITRITE-REFLEX NEGATIVE (Negative); URINE PROTEIN NEGATIVE (Negative); URINE SPECIFIC GRAVITY 1.025 (1.005-1.030); URINE UROBILINOGEN 0.2 E.U./dl (0.2-1.0)
[2018-12-28 08:03] VITALS: BP 112/54
[2018-12-28 20:00] VITALS: BP 125/56
[2018-12-29 08:00] VITALS: BP 128/54
[2018-12-29 20:05] VITALS: BP 121/48
[2018-12-30 05:18] LABS: HEMATOCRIT 30.1 % (37.0-47.0); HEMOGLOBIN 9.8 gm/dL (12.0-15.0); MCH 27.7 pg (26.0-34.0); MCHC 32.6 g/dL (28.0-37.0); MCV 84.9 fL (80.0-100.0); MPV 10.3 fl. (7.2-11.1); RBC 3.55 mil/uL (4.20-5.00); RDW-CV 16.6 % (10.5-14.5); WBC 7.2 thou/uL (4.0-11.0)
[2018-12-30 05:41] LABS: ALBUMIN 2.8 g/dL (3.4-5.0); CALCIUM 8.4 mg/dL (8.5-10.1); CREATININE 1.1 mg/dL (0.6-1.3); MAGNESIUM 2.3 mg/dL (1.8-2.4); POTASSIUM 3.8 mmol/L (3.5-5.1); TOTAL BILIRUBIN 0.7 mg/dL (<0.1-1.0); TOTAL PROTEIN 5.9 g/dL (6.4-8.2)
[2018-12-30 07:00] VITALS: BP 85/33
[2018-12-30 08:00] VITALS: BP 85/33
[2018-12-30 20:03] VITALS: BP 136/53
[2018-12-31 08:13] VITALS: BP 124/59
[2018-12-31 19:00] VITALS: BP 130/59
[2019-01-01 08:00] VITALS: BP 146/66
[2019-01-01 20:02] VITALS: BP 93/44
[2019-01-02 08:00] VITALS: BP 154/61
[2019-01-02 08:26] VITALS: BP 154/61
[2019-01-02 12:00] VITALS: BP 96/39
[2019-01-02 12:10] VITALS: BP 96/39
[2019-01-02 19:30] VITALS: BP 105/44
[2019-01-03 00:05] VITALS: BP 117/51
[2019-01-03 04:30] VITALS: BP 138/71
[2019-01-03 09:30] VITALS: BP 126/62
[2019-01-03 19:30] VITALS: BP 118/55
[2019-01-04 08:30] VITALS: BP 131/54
[2019-01-04 19:55] VITALS: BP 104/43
[2019-01-05 07:49] VITALS: BP 135/49
[2019-01-05 20:33] VITALS: BP 126/71
[2019-01-06 08:00] VITALS: BP 138/58
[2019-01-06 10:27] VITALS: BP 138/58
[2019-01-06] MEDS ORDERED: ASPIRIN325 PO (11:14)
[2019-01-06] MEDS ORDERED: ATIVAN1 MG PO (12:09)
[2019-01-06 13:12] VITALS: BP 138/58
== END 2019-01-06 13:15 | disposition home health service (06) | DRG 536 ==
LOC: M.REH 17:17
PROVIDERS: Family Medicine; Internal Medicine; ADMIT Physical Medicine & Rehabilitation
DX: S72.142A Displaced intertrochanteric fracture of left femur, initial encounter for closed fracture (principal); D62 Acute posthemorrhagic anemia; E44.0 Moderate protein-calorie malnutrition; W18.39XA Other fall on same level, initial encounter; E03.9 Hypothyroidism, unspecified; I25.10 Atherosclerotic heart disease of native coronary artery without angina pectoris; I10 Essential (primary) hypertension; F03.90 Unspecified dementia, unspecified severity, without behavioral disturbance, psychotic disturbance, mood disturbance, and anxiety; E61.1 Iron deficiency; E53.8 Deficiency of other specified B group vitamins; D63.8 Anemia in other chronic diseases classified elsewhere; Y93.89 Activity, other specified; Y92.89 Other specified places as the place of occurrence of the external cause; Y99.8 Other external cause status; Z88.6 Allergy status to analgesic agent; Z88.1 Allergy status to other antibiotic agents; Z95.5 Presence of coronary angioplasty implant and graft; Z79.1 Long term (current) use of non-steroidal anti-inflammatories (NSAID); Z79.82 Long term (current) use of aspirin; Z79.899 Other long term (current) drug therapy; Z68.22 Body mass index [BMI] 22.0-22.9, adult

== ENCOUNTER 2019-01-13 12:21 | Inpatient (IN) | payer MEDICARE ==
[~2019-01-13] VITALS: Ht 157.5 cm; Wt 57.2 kg
[~2019-01-13 12:21] MED LIST changes: +ASPIRIN325 PO; +ATIVAN1 MG PO
[2019-01-13 12:24] VITALS: BP 102/59
[2019-01-13] MEDS ORDERED: SENOKOT8.6 MG PO (12:32)
[2019-01-13] MEDS ORDERED: ZANTAC 150MG T150 MG PO (12:33)
[2019-01-13] MEDS ORDERED: THEREMS1 EAC1 PO (12:33)
[2019-01-13 12:52] LABS: ABSOLUTE EOSINOPHILS 0.2 thou/uL (0.0-0.7); ABSOLUTE LYMPHOCYTES 1.1 thou/uL (0.8-5.3); ABSOLUTE MONOCYTES 0.6 thou/uL (0.0-1.2); ABSOLUTE NEUTROPHILS 3.3 thou/uL (1.6-8.1); BASOPHILS 0.6 %; HEMATOCRIT 32.7 % (37.0-47.0); HEMOGLOBIN 10.9 gm/dL (12.0-15.0); LYMPHOCYTES 20.6 %; MCH 28.5 pg (26.0-34.0); MCHC 33.3 g/dL (28.0-37.0); MCV 85.7 fL (80.0-100.0); MONOCYTES 11.2 %; MPV 9.6 fl. (7.2-11.1); NUCLEATED RBCS 0 /100WBC; PLATELET COUNT* 181 thou/uL (150-400); POLYS 63.6 %; RBC 3.81 mil/uL (4.20-5.00); RDW-CV 16.8 % (10.5-14.5); WBC 5.3 thou/uL (4.0-11.0)
[2019-01-13 12:59] LABS: CALCIUM 8.3 mg/dL (8.5-10.1); CREATININE 0.9 mg/dL (0.6-1.3)
[2019-01-13 13:09] LABS: MAGNESIUM 2.1 mg/dL (1.8-2.4); TOTAL BILIRUBIN 0.4 mg/dL (<0.1-1.0); TOTAL PROTEIN 6.5 g/dL (6.4-8.2); TROPONIN-I LEVEL 0.07 ng/mL (<0.06)
[2019-01-13 14:36] VITALS: BP 104/60
[2019-01-13 15:00] VITALS: BP 135/65
[2019-01-13] MEDS ORDERED: TYLENOL325 MG PO (15:39)
--- NOTE | 2019-01-13 16:01 | EKG ---
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1930 Requested By: Chris Kennedy Order Number: [id number] MD: Jesus Escudero Measurements Intervals [place] Rate: 83 P: 24 HI: 150 QRS: -56 QRSD: 83 T: 14 QT: 375 QTc: 441 Interpretive Statements Sinus rhythm Inferior infarct, old Anterior infarct, old Compared to ECG 12/20/2018 09:30:13 Left ventricular hypertrophy no longer present Myocardial infarct finding still present Electronically Signed On 01-13-2019 16:01:33 CDT by Jesus Escudero [email or web address] <ELECTRONICALLY SIGNED> By: Jesus Escudero MD, [facility] 01/13/19 1601 1228 1228 Jesus Escudero MD, [facility] /EPI
[2019-01-13 20:00] VITALS: BP 125/86
[2019-01-14] VITALS: BP 117/59
[2019-01-14 04:00] VITALS: BP 125/57
[2019-01-14 05:04] LABS: CHOLESTEROL 90 mg/dL (<200); HDL CHOLESTEROL 45 mg/dL (>40); LDL CHOLESTEROL 30 mg/dL (<100); TRIGLYCERIDE 75 mg/dL (<150); VLDL 15 mg/dL (<40)
[2019-01-14 05:21] LABS: SERUM ASSESSMENT CLEAR
[2019-01-14 08:00] VITALS: BP 158/72
[2019-01-14 12:20] VITALS: BP 122/80
[2019-01-14 12:47] VITALS: BP 122/80
[2019-01-14] MEDS ORDERED: MONOPRIL20 MG PO (14:37)
--- NOTE | 2019-01-19 10:24 | CON ---
[address] [address] CONSULTATION Name: KAMJASON MARK Room: [address] M.R.#: [id number] Admission: 01/13/19 Attend Phys: Shai Delgado Discharge: 01/14/19 Date of : [birth year] Report #: [id number] THIS REPORT FOR: //name// CC: Venancio Parikh DATE OF SERVICE: 01/13/2019 CARDIOLOGY CONSULTATION HISTORY OF PRESENT ILLNESS: The patient is an 88-year-old white female who I was asked to see in the hospital today after an episode of chest pain. The patient has dementia, so most of the history is obtained from her daughter who is present. The patient apparently had a myocardial infarction about 3 years ago when she and her were living in [place], [place]. She was taken to [facility] and had 2 coronary stents placed with Dr. Mayfield. She had done well since that time. Recently, she has been followed by my partner, Dr. Harper. She developed dementia and she and her now live at [facility] here in [place] to be near the daughter. She ambulates with a walker. She actually just saw Dr. Harper in September. At that time, she had no complaints. Unfortunately about 3 weeks ago, she fell and fractured her hip. She was here at the [facility] and had hip surgery. She just went back to [employer] about a week ago. Apparently today, she was walking with a walker at [employer] when she mentioned to the aide she does have some shortness of breath and some chest discomfort. She was brought here to [place] by ambulance and admitted. I was asked to see her for further evaluation and treatment. She denied any palpitations, syncope, fever, or cough. PAST MEDICAL HISTORY: Otherwise, she has had hysterectomy, hemicolectomy for colon cancer, appendectomy, cataract extraction, back surgery. She has hypertension, hyperlipidemia. MEDICATIONS: At [employer] includes aspirin, Lipitor, fosinopril, Imdur, Synthroid, Namenda, metoprolol, ranitidine, and sertraline. ALLERGIES: SHE HAS AN ALLERGY TO PENICILLIN AND MORPHINE. FAMILY HISTORY: Negative for heart disease. SOCIAL HISTORY: She is . She and her live at assisted living here in [place]. They are previously from [place], [place]. No smoking or alcohol use. REVIEW OF SYSTEMS: She has had no history of stroke, asthma, peptic ulcer disease, liver disease, kidney disease. [place] [address] CONSULTATION Name: JASON HUMPHREY Room: [address] M.R.#: [id number] Admission: 01/13/19 Attend Phys: Shai Delgado Discharge: 01/14/19 Date of : [birth year] Report #: [id number] psychiatric illness. No chronic skin condition. PHYSICAL EXAMINATION: GENERAL: Revealed an elderly frail appearing female who was lying in bed. She appeared in no acute distress. VITAL SIGNS: She had a blood pressure 130/60, pulse 70. She is afebrile. HEENT: She was anicteric, conjunctivae pink. Mucous membranes moist. NECK: Veins do not appear distended. CHEST: Clear to auscultation. CARDIOVASCULAR: Regular rate and rhythm. ABDOMEN: Soft. EXTREMITIES: Had no edema. Dorsalis pedis pulse 2+ bilaterally. SKIN: Warm, dry. NEUROLOGIC: Nonfocal. LABORATORY DATA: ECG shows a sinus rhythm, no significant ST or T-wave changes noted. There appeared to be evidence of previous anterior infarction. She had an echocardiogram done in September of this year that showed left ventricular hypertrophy, ejection fraction of 60%, aortic sclerosis. Workup in the Emergency Room today, she had a portable chest x-ray that showed poor inspiration, no acute abnormalities. She had a CT scan of the head without contrast last month after her fall that showed no acute abnormality. Her lab work today, sodium 145, creatinine 0.9. Her liver function studies were normal. Troponin 0.06. BNP 276. Recent TSH was 0.4. White blood cell count 5.3, hemoglobin 10.9, hematocrit 32.7. IMPRESSION AND RECOMMENDATIONS: 1. Chest pain. Atypical for angina. Previous stenting. At this time, I would recommend a conservative approach. I would not recommend stress testing nor cardiac catheterization. I would recommend aspirin 81 mg a day. 2. Hypertension. The patient is on an SANJAY inhibitor and beta karen. 3. Hyperlipidemia. The patient is on a statin drug. 4. Dementia. 5. Recent hip fracture. 6. Previous resection of a colon cancer. <ELECTRONICALLY SIGNED> By: Jesus Escudero MD, FACC 01/19/19 [id number] Escudero MD, FACC /nt
== END 2019-01-14 16:30 | DRG 206 ==
LOC: M.ERS 12:21 → M.TBA-ER 13:35 → M.2W 14:37
PROVIDERS: Emergency Medicine Emergency Medical Services; Internal Medicine Cardiovascular Disease; ADMIT Internal Medicine
DX: J98.11 Atelectasis (principal); E44.0 Moderate protein-calorie malnutrition; I10 Essential (primary) hypertension; I25.10 Atherosclerotic heart disease of native coronary artery without angina pectoris; F03.90 Unspecified dementia, unspecified severity, without behavioral disturbance, psychotic disturbance, mood disturbance, and anxiety; E03.9 Hypothyroidism, unspecified; E78.5 Hyperlipidemia, unspecified; R79.89 Other specified abnormal findings of blood chemistry; I25.2 Old myocardial infarction; Z95.5 Presence of coronary angioplasty implant and graft; Z79.899 Other long term (current) drug therapy; Z79.82 Long term (current) use of aspirin; Z79.890 Hormone replacement therapy; Z88.6 Allergy status to analgesic agent; Z88.0 Allergy status to penicillin; Z90.49 Acquired absence of other specified parts of digestive tract; Z90.710 Acquired absence of both cervix and uterus; Z85.038 Personal history of other malignant neoplasm of large intestine; Z98.49 Cataract extraction status, unspecified eye

== ENCOUNTER 2020-01-19 14:16 | Emergency (ER) | payer MEDICARE, OTHER ==
[~2020-01-19] VITALS: Ht 162.6 cm; Wt 51.7 kg
[~2020-01-19 14:16] MED LIST changes: +MONOPRIL20 MG PO; +SENOKOT8.6 MG PO; +THEREMS1 EAC1 PO; +TYLENOL325 MG PO; +ZANTAC 150MG T150 MG PO
[2020-01-19] MEDS ORDERED: ALPRAZOLAM 0.0.25 M1 ×2 (14:28→14:29)
[2020-01-19] MEDS ORDERED: ATORVASTATIN CA80 MG PO (14:29)
[2020-01-19] MEDS ORDERED: ASA81BEC PO (14:29)
[2020-01-19] MEDS ORDERED: ISOSORBIDE MONO60 M1 PO (14:30)
[2020-01-19] MEDS ORDERED: MONOPRIL20 MG PO (14:30)
[2020-01-19] MEDS ORDERED: DIVALPROEX SOD250 M1 PO (14:30)
[2020-01-19] MEDS ORDERED: FAMOTIDINE 20 M20 MG PO (14:30)
[2020-01-19] MEDS ORDERED: NAMENDA 10 MG T10 MG PO (14:31)
[2020-01-19] MEDS ORDERED: [UNRECOGNIZED DRUG - OTHER] (14:31)
[2020-01-19] MEDS ORDERED: EUTHYROX75 MCG PO (14:31)
[2020-01-19] MEDS ORDERED: REMERON15 M1 PO (14:32)
[2020-01-19] MEDS ORDERED: SENNA PLUS TAB1 EACH PO (14:32)
[2020-01-19] MEDS ORDERED: RISPERDAL 1 MG T1 MG PO (14:32)
[2020-01-19] MEDS ORDERED: THEREMS-M1 EACH PO (14:33)
[2020-01-19] MEDS ORDERED: TRAMADOL 50 MG50 MG (14:33)
[2020-01-19] MEDS ORDERED: MAPAP325 MG PO (14:33)
[2020-01-19] MEDS ORDERED: SERTRALINE HCL25 MG PO (14:33)
[2020-01-19 14:44] LABS: HEMATOCRIT 27.2 % (37.0-47.0); MCH 28.7 pg (26.0-34.0); MCHC 33.1 g/dL (28.0-37.0); MCV 86.9 fL (80.0-100.0); MPV 8.8 fl. (7.2-11.1); NUCLEATED RBCS 0 /100WBC; PLATELET COUNT* 70 thou/uL (150-400); RBC 3.13 mil/uL (4.20-5.00); RDW-CV 17.8 % (10.5-14.5); WBC 3.8 thou/uL (4.0-11.0)
[2020-01-19 14:50] LABS: CREATININE 1.3 mg/dL (0.6-1.3); POTASSIUM 4.5 mmol/L (3.5-5.1)
[2020-01-19 14:54] LABS: ALBUMIN 2.3 g/dL (3.4-5.0); TOTAL BILIRUBIN 0.5 mg/dL (<0.1-1.0); TOTAL PROTEIN 5.3 g/dL (6.4-8.2)
[2020-01-19 15:26] LABS: URINE BLOOD 2+ (Negative); URINE CLARITY CLEAR; URINE GLUCOSE-RANDOM TRACE (Negative); URINE KETONES 1+ (Negative); URINE LEUKOCYTES-REFLEX TRACE (Negative); URINE NITRITE-REFLEX NEGATIVE (Negative); URINE PROTEIN 1+ (Negative); URINE SPECIFIC GRAVITY >= 1.030 (1.005-1.030)
[2020-01-19 15:29] LABS: URINE BILIRUBIN 2+ (Negative); URINE COLOR DARK YELLOW
[2020-01-19 15:31] LABS: ICTOTEST (BILI CONFIRMATORY) Positive (Negative)
[2020-01-19 15:44] LABS: ABSOLUTE EOSINOPHILS 0.1 thou/uL (0.0-0.7); ABSOLUTE LYMPHOCYTES 1.1 thou/uL (0.8-5.3); ABSOLUTE MONOCYTES 0.6 thou/uL (0.0-1.2); ABSOLUTE NEUTROPHILS 1.9 thou/uL (1.6-8.1); PLATELET ESTIMATE DECREASED
[2020-01-19 15:45] LABS: ANISOCYTOSIS 1+; POIKILOCYTOSIS 1+
[2020-01-19 15:47] LABS: BACTERIA-REFLEX >30 Many /HPF (None Seen); CRYSTALS None Seen /LPF (None Seen); HYALINE CASTS >10 Many /LPF (None Seen); MUCUS 4-6 Moderate strn/LPF (None Seen); SQUAMOUS 4-10 Moderate /LPF (0-3); URINE RBC 3-10 Few /HPF (0-2); URINE WBC-REFLEX 6-15 Few /HPF (0-5)
[2020-01-19] MEDS ORDERED: KEFLEX500 M2 PO (17:32)
[2020-01-19 17:56] VITALS: BP 110/70
== END 2020-01-19 18:20 | disposition home or self-care (01) ==
LOC: M.ERS 14:16
PROVIDERS: Physician Assistant
DX: N81.10 Cystocele, unspecified (principal); N39.0 Urinary tract infection, site not specified; I10 Essential (primary) hypertension; I25.10 Atherosclerotic heart disease of native coronary artery without angina pectoris; E03.9 Hypothyroidism, unspecified; F03.90 Unspecified dementia, unspecified severity, without behavioral disturbance, psychotic disturbance, mood disturbance, and anxiety; Z86.2 Personal history of diseases of the blood and blood-forming organs and certain disorders involving the immune mechanism; Z95.5 Presence of coronary angioplasty implant and graft; Z88.0 Allergy status to penicillin; Z88.6 Allergy status to analgesic agent